=== PATIENT | female | born 1980 | race Hispanic/Latino ===

== ENCOUNTER 2018-03-21 14:35 | Emergency (ER) | payer SELFPAY ==
[2018-03-21] MEDS ORDERED: FLUCONAZOLE 100 MG TAB ONE (15:04)
== END 2018-03-21 15:16 | disposition home or self-care (01) ==
LOC: EDH 14:35
DX: B37.3 Candidiasis of vulva and vagina (principal); E11.9 Type 2 diabetes mellitus without complications; Z88.0 Allergy status to penicillin

== ENCOUNTER 2018-07-31 21:34 | Emergency (ER) | payer OTHER ==
[2018-07-31 22:17] LABS: BASOPHILS % (AUTO) 0.3 % (0.0-5.0); EOSINOPHILS % (AUTO) 1.1 % (0.0-8.0); HEMATOCRIT 36.8 % (36-48); LYMPHOCYTES % (AUTO) 20.2 % (21.0-51.0); MEAN CORPUSCULAR HEMOGLOBIN 28.4 pg (27.0-33.0); MEAN CORPUSCULAR HGB CONC 33.2 g/dL (32.0-36.0); MEAN CORPUSCULAR VOLUME 85.5 fL (79-99); MONOCYTES % (AUTO) 3.4 % (3.0-13.0); PLATELET COUNT (AUTO) 261 K/uL (130-400); RED CELL DISTRIBUTION WIDTH 13.9 % (11.0-15.5)
[2018-07-31 22:28] LABS: APPEARANCE,URINE Clear (CLEAR); BILIRUBIN,URINE Negative (NEGATIVE); COLOR,URINE Yellow (YELLOW); GLUCOSE, URINE (UA) TRACE mg/dL (NEGATIVE); KETONES,URINE Negative (NEGATIVE); LEUKOCYTE ESTERASE ,URINE Trace (NEGATIVE); NITRATE,URINE Negative (NEGATIVE); OCCULT BLOOD,URINE Negative (NEGATIVE); PH,URINE 5.5 (5.0-8.0); PROTEIN,URINE Negative (NEGATIVE)
[2018-07-31 22:34] LABS: CREATININE 0.6 mg/dL (0.5-1.5)
[2018-07-31 22:35] LABS: HCG,QUAL RESULT NEGATIVE (NEGATIVE)
[2018-07-31 22:37] LABS: BACTERIA,URINE None Seen /HPF (None Seen); RBC,URINE None Seen /HPF (0-1); SQUAMOUS EPITHELIAL CELL,UR Few /HPF (0-2); WBC,URINE 0-1 /HPF (0-1); YEAST,URINE BUDDING None Seen /HPF (None Seen)
[2018-07-31 22:45] LABS: ALBUMIN 3.3 g/dL (3.5-5.0); BILIRUBIN,TOTAL 0.3 mg/dL (0.2-1.0); TOTAL PROTEIN, SERUM 7.5 g/dL (6.0-8.3)
[2018-08-01] MEDS ORDERED: KETOROLAC TROMETHAMINE 60 MG/2 ML VIAL ONE (00:13)
[2018-08-01] MEDS ORDERED: DIAZEPAM 5 MG TABLET ONE (00:14)
== END 2018-08-01 04:35 | disposition home or self-care (01) ==
LOC: EDH 21:34
DX: K80.20 Calculus of gallbladder without cholecystitis without obstruction (principal); M54.5 Low back pain; E11.9 Type 2 diabetes mellitus without complications; Z88.0 Allergy status to penicillin
CPT/HCPCS: 36415; 76705; 80053; 81001; 81025; 83690; 85025; 96372; 99285; J1885

== ENCOUNTER 2023-12-29 17:48 | Emergency (ER) | payer OTHER ==
[~2023-12-29] VITALS: Ht 157.5 cm; Wt 96.6 kg
[2023-12-29 18:55] LABS: BASOPHILS # (AUTO) 0.07 K/uL (0.00-0.20); BASOPHILS % (AUTO) 0.5 % (0.0-5.0); EOSINOPHILS # (AUTO) 0.07 K/uL (0.00-0.70); EOSINOPHILS % (AUTO) 0.5 % (0.0-8.0); HEMATOCRIT 39.1 % (36-48); IMMATURE GRANULOCYTE ABSOLUTE 0.04 K/uL (0-1); LYMPHOCYTES % (AUTO) 15.8 % (21.0-51.0); MEAN CORPUSCULAR HGB CONC 34.8 g/dL (32.0-36.0); MEAN CORPUSCULAR VOLUME 86.1 fL (79-99); MONOCYTES # (AUTO) 0.4 K/uL (0.1-1.0); MONOCYTES % (AUTO) 3.3 % (3.0-13.0); NEUTROPHILS # (AUTO) 10.1 K/uL (1.8-7.7); NEUTROPHILS % (AUTO) 79.6 % (40.0-77.0); PLATELET COUNT (AUTO) 317 K/uL (130-400); RED BLOOD CELL COUNT(AUTO) 4.54 MIL/uL (4.00-5.50); WHITE BLOOD COUNT (AUTO) 12.8 K/uL (4.8-10.8)
[2023-12-29 19:04] LABS: CREATININE 0.6 mg/dL (0.5-1.5); POTASSIUM 3.7 mmol/L (3.5-5.1)
[2023-12-29 19:09] LABS: ALBUMIN 3.4 g/dL (3.5-5.0); BILIRUBIN,TOTAL 0.4 mg/dL (0.2-1.0)
[2023-12-29 20:22] LABS: APPEARANCE,URINE CLEAR (CLEAR); BILIRUBIN,URINE NEGATIVE (NEGATIVE); COLOR,URINE LIGHT-YELLOW (YELLOW); GLUCOSE, URINE (UA) >=1000 mg/dL (NEGATIVE); KETONES,URINE NEGATIVE (NEGATIVE); LEUKOCYTE ESTERASE ,URINE NEGATIVE Leu/uL (NEGATIVE); NITRATE,URINE NEGATIVE (NEGATIVE); OCCULT BLOOD,URINE NEGATIVE (NEGATIVE); PROTEIN,URINE NEGATIVE (NEGATIVE); UROBILINOGEN,URINE 0.2 mg/dL (0.2-1.0)
[2023-12-29 20:23] LABS: ADD UA MICROSCOPIC YES
[2023-12-29 20:25] LABS: HCG,QUALITATIVE URINE NEGATIVE (NEGATIVE)
[2023-12-29 20:29] LABS: BACTERIA,URINE RARE /HPF (None Seen); MUCUS,URINE RARE LPF (None Seen); SQUAMOUS EPITHELIAL CELL,UR FEW /HPF (0-2)
[2023-12-29] MEDS ORDERED: IOHEXOL-350 75 ML VIAL IV ONE (22:58)
[2023-12-29] MEDS: ONDANSETRON 4MG INJ IVP ONE (23:57)
[2023-12-29] MEDS: 0.9%NACL 1000ML 1,000 ML IV ONE (23:57)
[2023-12-29] MEDS: KETOROLAC 15MG/ML VIAL (15MG/ML) IV ONE (23:58)
[2023-12-29] MEDS: PANTOPRAZOLE 40 MG/VIAL IVP ONE (23:59)
[2023-12-30] MEDS: MORPHINE 2 MG SYG IVP ONE (00:01)
[2023-12-30] MEDS ORDERED: CYCL5TAB PO (00:22)
[2023-12-30] MEDS ORDERED: DICY20TA2 PO (00:22)
[2023-12-30] MEDS ORDERED: SULF1TAB42 PO (00:22)
[2023-12-30] MEDS ORDERED: ACET-66 PO (00:22)
[2023-12-30] MEDS ORDERED: LOPE2CAP PO (00:22)
[2023-12-30 01:12] VITALS: BP 132/67; PULSE 83; RESP 17; O2SAT 99
== END 2023-12-30 01:13 | disposition home or self-care (01) ==
LOC: EDH 17:48
DX: S76.011A Strain of muscle, fascia and tendon of right hip, initial encounter (principal); K52.9 Noninfective gastroenteritis and colitis, unspecified; N39.0 Urinary tract infection, site not specified; E11.9 Type 2 diabetes mellitus without complications; Z90.49 Acquired absence of other specified parts of digestive tract; Z88.0 Allergy status to penicillin; X58.XXXA Exposure to other specified factors, initial encounter; Y93.89 Activity, other specified; Y92.89 Other specified places as the place of occurrence of the external cause; Y99.8 Other external cause status
CPT/HCPCS: 99285; 74177; 96374; 96375 ×2; 96361; 80053; 83690; 85025; 81001; 81025; 36415; J2270; J7030; J2405; C9113; J1885; Q9967

== ENCOUNTER 2024-01-25 07:28 | Emergency (ER) | payer BC, OTHER ==
[~2024-01-25] VITALS: Ht 157.5 cm; Wt 97.5 kg
[~2024-01-25 07:28] MED LIST: ACET-66 PO; CYCL5TAB PO; DICY20TA2 PO; LOPE2CAP PO; SULF1TAB42 PO
[2024-01-25 08:18] LABS: RAPID GROUP A STREP negative (NEGATIVE)
[2024-01-25 08:25] LABS: SARS-CoV-2, RNA, NAAT NEGATIVE SARS CoV-2 (NEGATIVE)
[2024-01-25 08:28] LABS: INFLUENZA TYPE A Negative For Type A (NEGATIVE); INFLUENZA TYPE B Negative For Type B (NEGATIVE)
[2024-01-25 09:18] VITALS: BP 148/78; PULSE 86; RESP 16; O2SAT 99
== END 2024-01-25 09:28 | disposition home or self-care (01) ==
LOC: EDH 07:28
DX: J02.9 Acute pharyngitis, unspecified (principal); E11.9 Type 2 diabetes mellitus without complications; Z88.0 Allergy status to penicillin; Z90.49 Acquired absence of other specified parts of digestive tract; Z20.822 Contact with and (suspected) exposure to COVID-19
CPT/HCPCS: 82948; 87635; 87804; 87880

== ENCOUNTER 2024-06-29 15:14 | Emergency (ER) | payer BC ==
[~2024-06-29] VITALS: Ht 157.5 cm; Wt 93.4 kg
[2024-06-29] MEDS: KETOROLAC 15MG/ML VIAL (15MG/ML) IM ONE (16:22)
[2024-06-29] MEDS ORDERED: NAPR-1192 PO (17:10)
[2024-06-29] MEDS ORDERED: DICL100G32 TP (17:10)
[2024-06-29 17:25] VITALS: BP 146/71; PULSE 90; RESP 18; O2SAT 99
== END 2024-06-29 17:29 | disposition home or self-care (01) ==
LOC: EDH 15:14
DX: M77.12 Lateral epicondylitis, left elbow (principal); E11.9 Type 2 diabetes mellitus without complications; Z88.0 Allergy status to penicillin; Z79.899 Other long term (current) drug therapy; Z90.49 Acquired absence of other specified parts of digestive tract
CPT/HCPCS: 99284; 73080; 96372; J1885

== ENCOUNTER 2024-08-22 21:23 | Emergency (ER) | payer BC ==
[~2024-08-22] VITALS: Ht 157.5 cm; Wt 95.3 kg
[~2024-08-22 21:23] MED LIST changes: +DICL100G32 TP; +NAPR-1192 PO
[2024-08-22 21:48] VITALS: TEMP 99.6
[2024-08-22 21:51] LABS: BASOPHILS # (AUTO) 0.05 K/uL (0.00-0.20); BASOPHILS % (AUTO) 0.4 % (0.0-5.0); EOSINOPHILS # (AUTO) 0.09 K/uL (0.00-0.70); EOSINOPHILS % (AUTO) 0.8 % (0.0-8.0); HEMATOCRIT 38.7 % (36-48); IMMATURE GRANULOCYTE ABSOLUTE 0.04 K/uL (0-1); LYMPHOCYTES # (AUTO) 2.3 K/uL (1.0-4.8); LYMPHOCYTES % (AUTO) 19.4 % (21.0-51.0); MEAN CORPUSCULAR HEMOGLOBIN 29.4 pg (27.0-33.0); MEAN CORPUSCULAR HGB CONC 34.4 g/dL (32.0-36.0); MEAN CORPUSCULAR VOLUME 85.4 fL (79-99); MONOCYTES # (AUTO) 0.4 K/uL (0.1-1.0); NEUTROPHILS # (AUTO) 8.8 K/uL (1.8-7.7); NEUTROPHILS % (AUTO) 76.1 % (40.0-77.0); PLATELET COUNT (AUTO) 307 K/uL (130-400); RED BLOOD CELL COUNT(AUTO) 4.53 MIL/uL (4.00-5.50); RED CELL DISTRIBUTION WIDTH 12.7 % (11.0-15.5); WHITE BLOOD COUNT (AUTO) 11.6 K/uL (4.8-10.8)
[2024-08-22 21:56] LABS: SARS-CoV-2, RNA, NAAT NEGATIVE SARS CoV-2 (NEGATIVE)
[2024-08-22 22:00] LABS: INFLUENZA TYPE A Negative For Type A (NEGATIVE); INFLUENZA TYPE B Negative For Type B (NEGATIVE)
[2024-08-22 22:05] LABS: CREATININE 0.8 mg/dL (0.5-1.0)
[2024-08-22] MEDS: levoFLOXacin 750 MG TABLET PO ONE (22:55)
[2024-08-22] MEDS: 0.9%NACL 1000ML 1,000 ML IV ONE (22:55)
[2024-08-22] MEDS: INSULIN humuLIN R 100 UNIT/ML 3ML IV ONE (23:20)
[2024-08-23] LABS: ADD UA MICROSCOPIC YES; APPEARANCE,URINE CLEAR (CLEAR); BILIRUBIN,URINE NEGATIVE (NEGATIVE); COLOR,URINE COLORLESS (YELLOW); GLUCOSE, URINE (UA) >=1000 mg/dL (NEGATIVE); KETONES,URINE NEGATIVE (NEGATIVE); LEUKOCYTE ESTERASE ,URINE NEGATIVE Leu/uL (NEGATIVE); NITRATE,URINE NEGATIVE (NEGATIVE); OCCULT BLOOD,URINE NEGATIVE (NEGATIVE); PROTEIN,URINE NEGATIVE (NEGATIVE); UROBILINOGEN,URINE 0.2 mg/dL (0.2-1.0)
[2024-08-23 00:02] LABS: BACTERIA,URINE None Seen /HPF (None Seen); RBC,URINE 0-1 /HPF (0-1); SQUAMOUS EPITHELIAL CELL,UR Rare /HPF (0-2); WBC,URINE 0-1 /HPF (0-1)
[2024-08-23] MEDS ORDERED: LEVO750T68 PO (00:14)
[2024-08-23 00:24] VITALS: BP 153/75; PULSE 89; RESP 18; O2SAT 98
== END 2024-08-23 00:38 | disposition home or self-care (01) ==
LOC: EDH 21:23
DX: J18.9 Pneumonia, unspecified organism (principal); E11.65 Type 2 diabetes mellitus with hyperglycemia; E66.9 Obesity, unspecified; Z88.0 Allergy status to penicillin; Z90.49 Acquired absence of other specified parts of digestive tract; Z20.822 Contact with and (suspected) exposure to COVID-19
CPT/HCPCS: 99284; 96374; 71045; 87635; 84484; 80048; 85025; 87804 ×2; 82948; 81001; 36415; 93005; J1815; J7030

== ENCOUNTER 2025-03-29 12:09 | Emergency (ER) | payer BC ==
[~2025-03-29] VITALS: Ht 157.5 cm; Wt 92.5 kg
[~2025-03-29 12:09] MED LIST changes: -CYCL5TAB PO; +CYCL5TAB3 PO; +LEVO750T68 PO
--- NOTE | 2025-03-29 12:38 | ERN ---
General Chief Complaint: Chest Pain Stated Complaint: CHEST PAIN Time Seen by MD: 12:13 Source: patient History of Present Illness Initial Comments Patient is a 45-year-old obese female with a history of hypercholesterolemia and diabetes. She has had an appendectomy and a cholecystectomy. She started to have chest pain last night on her left chest making it difficulty for her to take a full breath and sleep. It did not improve today and so she comes in for further evaluation. She has not taken any Tylenol or Motrin to help with the pain. She has never had this pain before. She does not have any other associated symptoms such as an upper respiratory tract infection or GI symptoms. Patient states she has had no recent exertion. Allergies: Coded Allergies: Penicillins (Unverified Allergy, Unknown, HIVES, 12/29/23) Home Meds Active Scripts Levofloxacin (Levaquin 750Mg Tabs) 750 Mg Tablet, 750 MG PO DAILY for 6 Days, #6 TAB 0 Refills Prov:GENOVEVA COYNE 08/23/24 Diclofenac Sodium (Diclofenac Sodium) 3 % Gel..gram., 100 GM TP BID, #100 G Prov:KRISSY RENDON 06/29/24 Naproxen (Naproxen) 375 Mg Tablet, 375 MG PO BID for 10 Days, #20 TAB 0 Refills Prov:KRISSY RENDON 06/29/24 Loperamide HCl (Loperamide) 2 Mg Capsule, 2 MG PO TID PRN for DIARRHEA for 3 Days, #9 CAP Prov:UMESH JUNIOR 12/30/23 Sulfamethoxazole/Trimethoprim (Bactrim Ds Tablet) 800 Mg-160 Mg Tablet, 1 TAB PO BID for 10 Days, #20 TAB Prov:UMESH JUNIOR 12/30/23 Cyclobenzaprine HCl (Cyclobenzaprine HCl) 5 Mg Tablet, 5 MG PO DAILYDINNER for 5 Days, #5 TAB Prov:UMESH JUNIOR 12/30/23 Dicyclomine HCl (Bentyl) 20 Mg Tab, 20 MG PO BID for 5 Days, #10 TAB Prov:UMESH JUNIOR 12/30/23 Acetaminophen (Acetaminophen) 500 Mg Tablet, 500 MG PO Q4PRN for 5 Days, #15 TAB Prov:UMESH JUNIOR 12/30/23 Past Medical History Past Medical History: Diabetes-Type II, High Cholesterol Past Surgical History: Appendectomy, Cholecystectomy Family History Family History: Negative Social History Social History: Negative Constitutional: (-) chills, (-) diaphoresis, (-) fever, (-) malaise, (-) weakness, (-) other documentation EENTM: (-) eye pain, (-) blurred vision, (-) tearing, (-) double vision, (-) ear pain, (-) ear discharge, (-) nose pain, (-) nose congestion, (-) throat pain, (-) Throat swelling, (-) mouth pain, (-) tooth pain, (-) mouth swelling, (-) other documentation Respiratory: (-) cough, (-) orthopnea, (-) short of breath, (-) stridor, (-) wheezing, (-) other documentation Cardiovascular: (+) chest pain, (+) dyspnea on exertion Gastrointestinal/Abdominal: (-) nausea, (-) vomiting, (-) diarrhea, (-) abdominal pain, (-) abdominal distention, (-) constipation, (-) rectal bleeding, (-) dark stool/melena, (-) other documentation Genitourinary: (-) vaginal discharge, (-) vaginal bleeding, (-) dysuria, (-) frequency, (-) hematuria, (-) pain, (-) other documentation Skin: (-) laceration, (-) contusion, (-) abrasion, (-) abscess, (-) rash, (-) change in color, (-) change in hair, (-) change in nails, (-) diaphoresis, (-) dryness, (-) other documentation Physical Exam General Appearance: (+) mild distress Orientation: (+) alert, (+) oriented x 3 Head/Face Trauma: No Eye: bilateral eye normal inspection, bilateral eye PERRL, bilateral eye EOMI Ear, Nose, Throat: (+) hearing grossly normal Neck: (+) normal inspection, (+) supple, (+) full range of motion Respiratory: (+) lungs clear Respiratory Comment Patient has difficulty taking a full breath but her lung sounds are clear when she breathes in. She has pretty severe left upper chest wall tenderness. From ribs 3 through six medially and laterally. Heart: (+) regular, (+) no gallop Vascular: (+) no edema Gastrointestinal: (+) soft, (+) non-tender, (+) bowel sound present Results Laboratory and Microbiology Lab and Micro Result Laboratory Tests Test 03/29/25 12:50 03/29/25 13:18 White Blood Count 8.7 K/uL (4.8-10.8) Red Blood Count 4.34 MIL/uL (4.00-5.50) Hemoglobin 12.9 g/dL (12.0-16.0) Hematocrit 39.7 % (36-48) Mean Corpuscular Volume 91.5 fL (79-99) Mean Corpuscular Hemoglobin 29.7 pg (27.0-33.0) Mean Corpuscular Hemoglobin Concent 32.5 g/dL (32.0-36.0) Red Cell Distribution Width 13.2 % (11.0-15.5) Platelet Count 276 K/uL (130-400) Mean Platelet Volume 11.6 fL (7.5-10.5) H Immature Granulocyte % (Auto) 0.5 % (0-1) Neutrophils (%) (Auto) 78.9 % (40.0-77.0) H Lymphocytes (%) (Auto) 16.4 % (21.0-51.0) L Monocytes (%) (Auto) 3.0 % (3.0-13.0) Eosinophils (%) (Auto) 0.7 % (0.0-8.0) Basophils (%) (Auto) 0.5 % (0.0-5.0) Neutrophils # (Auto) 6.9 K/uL (1.8-7.7) Lymphocytes # (Auto) 1.4 K/uL (1.0-4.8) Monocytes # (Auto) 0.3 K/uL (0.1-1.0) Eosinophils # (Auto) 0.06 K/uL (0.00-0.70) Basophils # (Auto) 0.04 K/uL (0.00-0.20) Absolute Immature Granulocyte (auto 0.04 K/uL (0-1) Nucleated Red Blood Cells 0.0 % (0.0-0.19) Sodium Level 144 mmol/L (136-145) Potassium Level 4.2 mmol/L (3.5-5.1) Chloride Level 106 mmol/L (101-111) Carbon Dioxide Level 30 mmol/L (21-32) Blood Urea Nitrogen 8 mg/dL (7-18) Creatinine 0.5 mg/dL (0.5-1.0) Glomerular Filtration Rate Calc 119 mL/min (>90) Random Glucose 94 mg/dL (70-105) Total Calcium 9.1 mg/dL (8.5-10.1) Troponin I High Sensitivity < 4 ng/L (4-50) L Procalcitonin < 0.05 ng/mL (0.05-0.5) L Urine Color LIGHT-YELLOW (YELLOW) Urine Appearance CLEAR (CLEAR) Urine pH 5.5 (5.0-8.0) Urine Specific Wilkinson 1.026 (1.001-1.031) Urine Protein NEGATIVE mg/dL (NEGATIVE) Urine Glucose (UA) >=1000 mg/dL (NEGATIVE) H Urine Ketones NEGATIVE mg/dL (NEGATIVE) Urine Occult Blood NEGATIVE (NEGATIVE) Urine Nitrate NEGATIVE (NEGATIVE) Urine Bilirubin NEGATIVE mg/dL (NEGATIVE) Urine Urobilinogen 0.2 mg/dL (0.2-1.0) Urine Leukocyte Esterase NEGATIVE Hollie/uL Urine RBC 0-1 /HPF (0-1) Urine WBC 0-1 /HPF (0-1) Urine Squamous Epithelial Cells RARE /HPF (0-2) Urine Bacteria RARE /HPF (None Seen) MDM 45-year-old female with chest wall tenderness. An EKG already performed shows no ischemic changes no ST-elevation no T-wave changes just low voltage in the extremity in precordial leads. The chest wall tenderness is surprisingly severe. I will give her some Toradol and Flexeril. I will also give her some fluids. A quick troponin chemistry panel CBC. Laboratory results are negative for infection and cardiac ischemia. The patient feels much better after receiving a L of fluid and a dose of muscle relaxant and Toradol. Patient now wonders if she injured her chest wall moving some heavy boxes yesterday. ED Course Orders Procedure Category Date Status Time Chest 1vw RAD 03/29/25 Resulted 12:17 12 Lead Ekg Tracing- EKG 03/29/25 Complete Technical 12:17 Iv Insertion CPOE 03/29/25 Transmitted 12:17 Cbc With Differential LAB 03/29/25 Complete 12:17 Troponin I High LAB 03/29/25 Complete Sensitivity 12:17 Urinalysis Profile LAB 03/29/25 Complete 12:17 Basic Metabolic Panel LAB 03/29/25 Complete 12:17 Lactated Ringers PHA 03/29/25 Complete 1000ml (Lactated 12:38 Cyclobenzaprine Hcl PHA 03/29/25 Complete (Cyclobenzaprine Hcl 13:00 Ketorolac PHA 03/29/25 Complete Tromethamine 30mg/Ml 13:00 Procalcitonin LAB 03/29/25 Complete 13:40 Current Medications Medications (Trade) Dose Ordered Sig/Mamta Route PRN Reason Start Time Stop Time Status Last Admin Dose Admin Cyclobenzaprine HCl (Cyclobenzaprine HCl) 10 mg ONCE ONCE PO 03/29/25 13:00 03/29/25 13:01 DC 03/29/25 13:03 Ketorolac Tromethamine (toRADol) 30 mg ONCE ONCE IVP 03/29/25 13:00 03/29/25 13:01 DC 03/29/25 13:03 Lactated Ringer's (Lactated Ringers 1000ml) 1,000 ml BOLUS STAT IV 03/29/25 12:38 03/29/25 12:40 DC 03/29/25 13:03 Vital Signs Date Time Temp Pulse Resp B/P (MAP) Pulse Ox O2 Delivery O2 Flow Rate FiO2 03/29/25 13:09 98.2 70 16 121/65 98 Room Air* 0 21 03/29/25 12:12 73 18 118/76 100 Room Air 0 DX & DISP Disposition: Discharge Departure Impression: Primary Impression: Chest wall pain Condition: Stable Additional Instructions: Your cardiac workup is negative for cardiac ischemia and you have no signs of a bacterial infection. Treat your chest wall tenderness with ibuprofen and warm compresses. I also encourage moving the muscles doing arm exercises to help speed the recovery. Follow-up with your primary care physician of the pain persists. Referrals: SELF,REFERRAL (PCP) JCARLOS KEENE MD March 29, 2025 12:38
[2025-03-29] MEDS: LACTATED RINGERS 1000ML IV STA (13:03)
[2025-03-29] MEDS: CYCLOBENZAPRINE HCL 10 MG TABLET PO ONE (13:03)
[2025-03-29] MEDS: ketOROlac 30MG VIAL (30MG/ML) IVP ONE (13:03)
[2025-03-29 13:14] LABS: BASOPHILS # (AUTO) 0.04 K/uL (0.00-0.20); BASOPHILS % (AUTO) 0.5 % (0.0-5.0); EOSINOPHILS # (AUTO) 0.06 K/uL (0.00-0.70); EOSINOPHILS % (AUTO) 0.7 % (0.0-8.0); HEMATOCRIT 39.7 % (36-48); IMMATURE GRANULOCYTE ABSOLUTE 0.04 K/uL (0-1); LYMPHOCYTES # (AUTO) 1.4 K/uL (1.0-4.8); LYMPHOCYTES % (AUTO) 16.4 % (21.0-51.0); MEAN CORPUSCULAR HEMOGLOBIN 29.7 pg (27.0-33.0); MEAN CORPUSCULAR HGB CONC 32.5 g/dL (32.0-36.0); MEAN CORPUSCULAR VOLUME 91.5 fL (79-99); MONOCYTES # (AUTO) 0.3 K/uL (0.1-1.0); NEUTROPHILS # (AUTO) 6.9 K/uL (1.8-7.7); NEUTROPHILS % (AUTO) 78.9 % (40.0-77.0); PLATELET COUNT (AUTO) 276 K/uL (130-400); RED BLOOD CELL COUNT(AUTO) 4.34 MIL/uL (4.00-5.50); RED CELL DISTRIBUTION WIDTH 13.2 % (11.0-15.5); WHITE BLOOD COUNT (AUTO) 8.7 K/uL (4.8-10.8)
[2025-03-29 13:22] LABS: CREATININE 0.5 mg/dL (0.5-1.0); POTASSIUM 4.2 mmol/L (3.5-5.1)
[2025-03-29 13:59] LABS: APPEARANCE,URINE CLEAR (CLEAR); BILIRUBIN,URINE NEGATIVE (NEGATIVE); COLOR,URINE LIGHT-YELLOW (YELLOW); GLUCOSE, URINE (UA) >=1000 mg/dL (NEGATIVE); KETONES,URINE NEGATIVE (NEGATIVE); LEUKOCYTE ESTERASE ,URINE NEGATIVE Leu/uL (NEGATIVE); NITRATE,URINE NEGATIVE (NEGATIVE); OCCULT BLOOD,URINE NEGATIVE (NEGATIVE); PH,URINE 5.5 (5.0-8.0); PROTEIN,URINE NEGATIVE (NEGATIVE); UROBILINOGEN,URINE 0.2 mg/dL (0.2-1.0)
[2025-03-29 14:03] LABS: ADD UA MICROSCOPIC YES
[2025-03-29 14:05] LABS: BACTERIA,URINE RARE /HPF (None Seen); MUCUS,URINE RARE LPF (None Seen); RBC,URINE 0-1 /HPF (0-1); SQUAMOUS EPITHELIAL CELL,UR RARE /HPF (0-2); WBC,URINE 0-1 /HPF (0-1)
--- NOTE | 2025-03-29 14:25 | HMCIMG ---
PORTABLE CHEST RADIOGRAPH INDICATION: CHEST PAIN COMPARISON: 08/22/2024 FINDINGS: quality assurance monitor chassis leads overlie the field of view. Shallow inspiration. Heart size is normal. The pulmonary vascularity and rafat appear normal. No abnormal pulmonary parenchymal opacity or consolidation identified. No significant pleural effusion noted. No pneumothorax detected. IMPRESSION: Shallow inspiration without radiographic evidence for any acute cardiopulmonary process.
--- NOTE | 2025-03-29 14:27 | EKG ---
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
[2025-03-29 15:00] VITALS: BP 125/101; PULSE 68; RESP 16; TEMP 98.3; O2SAT 98
== END 2025-03-29 15:07 | disposition home or self-care (01) ==
LOC: EDH 12:09
DX: R07.89 Other chest pain (principal); E11.9 Type 2 diabetes mellitus without complications; E66.9 Obesity, unspecified; E78.00 Pure hypercholesterolemia, unspecified; Z88.0 Allergy status to penicillin; Z90.49 Acquired absence of other specified parts of digestive tract
CPT/HCPCS: 99284; 96374; 71045; 96361; 84484; 80048; 85025; 81001; 36415; 93005; 84145; J1885; J7120

== ENCOUNTER 2025-07-14 20:02 | Emergency (ER) | payer BC ==
[~2025-07-14] VITALS: Ht 157.5 cm; Wt 91.2 kg
[2025-07-14 20:05] VITALS: TEMP 98.4
--- NOTE | 2025-07-14 20:19 | ERN ---
General Chief Complaint: Shoulder Injury/Pain Stated Complaint: C/O RT SHOULDER PAIN RADIATING TO BACK AND CHEST Time Seen by MD: 20:04 Source: patient History of Present Illness Initial Comments PATIENT IS A 45-YEAR-OLD FEMALE COMING IN COMPLAINING OF RIGHT SHOULDER PAIN. PATIENT STATES THAT THE PAIN HAS BEEN WEAK. PATIENT ALSO ATTRIBUTES THE PAIN TO LIFTING HEAVY OBJECTS AND DOING SOME PHYSICAL THEY BROUGHT HIM. SHE STATES THAT SHE IS ABLE TO MOVE HER SHOULDER BUT SOME DISCOMFORT WHEN SHE STARTED ABDUCT. Allergies: Coded Allergies: Penicillins (Unverified Allergy, Unknown, HIVES, 12/29/23) Home Meds Active Scripts Levofloxacin (Levaquin 750Mg Tabs) 750 Mg Tablet, 750 MG PO DAILY for 6 Days, #6 TAB 0 Refills Prov:GENOVEVA COYNE 08/23/24 Diclofenac Sodium (Diclofenac Sodium) 3 % Gel..gram., 100 GM TP BID, #100 G Prov:KRISSY RENDON 06/29/24 Naproxen (Naproxen) 375 Mg Tablet, 375 MG PO BID for 10 Days, #20 TAB 0 Refills Prov:KRISSY RENDON 06/29/24 Loperamide HCl (Loperamide) 2 Mg Capsule, 2 MG PO TID PRN for DIARRHEA for 3 Days, #9 CAP Prov:UMESH JUNIOR 12/30/23 Sulfamethoxazole/Trimethoprim (Bactrim Ds Tablet) 800 Mg-160 Mg Tablet, 1 TAB PO BID for 10 Days, #20 TAB Prov:UMESH JUNIOR 12/30/23 Cyclobenzaprine HCl (Cyclobenzaprine HCl) 5 Mg Tablet, 5 MG PO DAILYDINNER for 5 Days, #5 TAB Prov:UMESH JUNIOR 12/30/23 Dicyclomine HCl (Bentyl) 20 Mg Tab, 20 MG PO BID for 5 Days, #10 TAB Prov:UMESH JUNIOR 12/30/23 Acetaminophen (Acetaminophen) 500 Mg Tablet, 500 MG PO Q4PRN for 5 Days, #15 TAB Prov:UMESH JUNIOR 12/30/23 Past Medical History Past Medical History: Diabetes-Type II Past Surgical History: Appendectomy, Cholecystectomy Family History Family History: Negative Social History Social History: Negative Female( History) LMP: Jun 19, 2025 ROS Dictation CONSTITUTIONAL: NO CHILLS, NO FEVER, NO WEAKNESS, NO DIAPHORESIS, NO MALAISE. HEAD/FACE: NO SIGNS OF TRAUMA. EENT: NO EYE PAIN, NO BLURRED VISION, NO TEARING, NO DOUBLE VISION, NO EAR PAIN, NO EAR DISCHARGE, NO NOSE PAIN, NO NASAL CONGESTION, NO THROAT PAIN, NO THROAT SWELLING, NO MOUTH PAIN. RESPIRATORY: NO COUGH, NO ORTHOPNEA, NO SOB, NO STRIDOR, NO WHEEZING. CARDIOVASCULAR: NO CHEST PAIN, NO EDEMA, NO PALPITATIONS, NO SYNCOPE. GASTROINTESTINAL/ABDOMINAL: NO ABDOMINAL PAIN, NO CONSTIPATION, NO DIARRHEA, NO NAUSEA, NO VOMITING. GENITOURINARY: NO ABNORMAL DISCHARGE, NO DYSURIA, NO FREQUENT URINATION, NO HEMATURIA. NO COMPLAINTS OF PAIN IN THE GENITALS. MUSCULOSKELETAL: NO BACK PAIN, NO GOUT, JOINT PAIN, NO JOINT SWELLING, MUSCLE PAIN, NO MUSCLE STIFFNESS, NO NECK PAIN. INTEGUMENTARY: NO CHANGE IN COLOR, NO CHANGE IN HAIR/NAILS, NO DRYNESS, NO LESION, NO LUMPS, NO RASH. NEUROLOGICAL/PSYCH: NO ANXIETY, NOT DEPRESSED, NO EMOTIONAL PROBLEM, NO HEADACHE, NO NUMBNESS, NO PRE-EXISTING DEFICIT, NO HISTORY OF SEIZURES, NO TREMORS, NO WEAKNESS. HEMATOLOGIC/LYMPHATIC: NOT ANEMIC, NO HISTORY OF BLOOD CLOTS, NO APPARENT BLEEDING, NO BRUISING, GLANDS NOT SWOLLEN. ALL SYSTEMS NEGATIVE, EXCEPT NOTED. Physical Exam Physical Exam Dictation VITAL SIGNS: REVIEWED. GENERAL APPEARANCE: ALERT, ORIENTED X3, NO ACUTE DISTRESS, OBESE. HEAD AND FACE: NON-TRAUMATIC. EYES: PERRL, PINK CONJUNCTIVAS, EYELID NO TRAUMA, ANTERIOR CHAMBER CLEAR. EARS: PINNAS INTACT AND NO SIGNS OF TRAUMA OR ERYTHEMA. EAR CANALS CLEAR AND NO DISCHARGE. TMS NO ERYTHEMA. NOSE: NO DISCHARGE, NO BLEEDING. OROPHARYNX: MOUTH NORMAL, TEETH NO CARIES, TONGUE PINK. PHARYNX CLEAR, NO ERYTHEMA. TONSILS NO EXUDATES, NO ABSCESSES NOTED. MUCOUS MEMBRANE MOIST. NECK: SUPPLE, NON-TENDER, NO THYROMEGALY, NO MASSES, NO JVD, NO BRUITS. BREAST: DEFERRED. CHEST: NO TENDERNESS, NO CREPITUS, NO PARADOXICAL MOVEMENT, NO RETRACTIONS. LUNGS: CLEAR, WELL-VENTILATED, SYMMETRIC, NO RALES, NO WHEEZING, NO RHONCHI, NO STRIDOR, GOOD BREATH SOUNDS BILATERALLY. HEART: REGULAR RATE, REGULAR RHYTHM, NO MURMUR, NO GALLOPS. VASCULAR: NO PERIPHERAL EDEMA. ABDOMEN: SOFT, POSITIVE BOWEL SOUNDS, NONDISTENDED, NO GUARDING, NONTENDER, NO REBOUND, NO MASSES NO HEPATOMEGALY, NO SPLENOMEGALY, NO HAINES'S SIGN, NO HERNIAS. RECTAL: DEFERRED. GENITAL: DEFERRED. NEUROLOGICAL: NORMAL SPEECH, GROSS MOTOR FUNCTION INTACT, GROSS SENSORY FUNCTION INTACT. MUSCULOSKELETAL: NECK NONTENDER, FULL RANGE OF MOTION, BACK NONTENDER, FULL RANGE OF MOTION. EXTREMITIES: NONTENDER, FULL RANGE OF MOTION. PATIENT WITH THE PAIN ON PALPATION NO LIMITATION ON ABDUCTION ADDUCTION SKIN: COLOR PINK, DRY, NO TURGOR, NO RASH, NO LACERATIONS, NO ABRASIONS, NO CONTUSIONS. LYMPHATICS: DEFERRED. Results Laboratory and Microbiology Lab and Micro Result Laboratory Tests Test 07/14/25 20:14 07/14/25 20:27 Urine HCG, Qualitative NEGATIVE (NEGATIVE) White Blood Count 13.4 K/uL (4.8-10.8) H Red Blood Count 4.39 MIL/uL (4.00-5.50) Hemoglobin 13.3 g/dL (12.0-16.0) Hematocrit 39.0 % (36-48) Mean Corpuscular Volume 88.8 fL (79-99) Mean Corpuscular Hemoglobin 30.3 pg (27.0-33.0) Mean Corpuscular Hemoglobin Concent 34.1 g/dL (32.0-36.0) Red Cell Distribution Width 13.2 % (11.0-15.5) Platelet Count 290 K/uL (130-400) Mean Platelet Volume 11.5 fL (7.5-10.5) H Immature Granulocyte % (Auto) 0.4 % (0-1) Neutrophils (%) (Auto) 80.9 % (40.0-77.0) H Lymphocytes (%) (Auto) 15.2 % (21.0-51.0) L Monocytes (%) (Auto) 2.8 % (3.0-13.0) L Eosinophils (%) (Auto) 0.4 % (0.0-8.0) Basophils (%) (Auto) 0.3 % (0.0-5.0) Neutrophils # (Auto) 10.8 K/uL (1.8-7.7) H Lymphocytes # (Auto) 2.0 K/uL (1.0-4.8) Monocytes # (Auto) 0.4 K/uL (0.1-1.0) Eosinophils # (Auto) 0.06 K/uL (0.00-0.70) Basophils # (Auto) 0.04 K/uL (0.00-0.20) Absolute Immature Granulocyte (auto 0.05 K/uL (0-1) Nucleated Red Blood Cells 0.0 % (0.0-0.19) Sodium Level 139 mmol/L (136-145) Potassium Level 4.1 mmol/L (3.5-5.1) Chloride Level 104 mmol/L (101-111) Carbon Dioxide Level 29 mmol/L (21-32) Blood Urea Nitrogen 19 mg/dL (7-18) H Creatinine 0.6 mg/dL (0.5-1.0) Glomerular Filtration Rate Calc 114 mL/min (>90) Random Glucose 167 mg/dL (70-105) H Total Calcium 9.2 mg/dL (8.5-10.1) Troponin I High Sensitivity < 4 ng/L (4-50) L Labs Reviewed?: Yes EKG/XRAY/US/CT/MRI EKG Comment 07/14/2025 TIME 8:17 P.M. VENTRICULAR RATE 84 SINUS RHYTHM NM [address] WAVE ELEVATION OR DEPRESSION X-RAY Comment chest xray- nad MDM MDM: DIFFERENTIAL DIAGNOSIS: DELTOID STRAIN, MUSCLE STRAIN, ACS, NSTEMI, leucocytosis RATIONALE: TESTS CONSIDERED AND ORDERED SECONDARY TO SHARED DECISION MAKING INCLUDE: PREVIOUS OUTSIDE RECORDS REVIEWED: OLD ER VISITS. RISK OF COMPLICATION AND/OR MORBIDITY OR MORTALITY OF PATIENT MANAGEMENT: NONE MEDICATIONS-PER MEDICATION RECONCILIATION NEED FOR HOSPITALIZATION: PATIENT DOES NOT MEET CRITERIA FOR HOSPITALIZATION. NEED FOR EMERGENCY MAJOR/MINOR SURGERY: NO A sling was placed in the right shoulder patient due to right deltoid tenderness and pain on he has been. Laboratory workup doses otherwise limits. Patient received anti-inflammatories antispasmodics he will be discharged in stable condition with a diagnosis of deltoid strain. I did also advised her appropriate follow up with the PCP long-term management. ED Course Orders Procedure Category Date Status Time Cbc With Differential LAB 07/14/25 Complete 20:09 12 Lead Ekg Tracing- EKG 07/14/25 Complete Technical 20:09 Troponin I High LAB 07/14/25 Complete Sensitivity 20:09 Basic Metabolic Panel LAB 07/14/25 Complete 20:09 ,Urine Test LAB 07/14/25 Complete 20:09 Orphenadrine Citrate PHA 07/14/25 Complete (Norflex) 20:30 Sling YASSINE 07/14/25 In Process 20:19 Ketorolac PHA 07/14/25 Complete Tromethamine 30mg/Ml 21:00 Chest 1vw RAD 07/14/25 Taken 21:08 Current Medications Medications (Trade) Dose Ordered Sig/Mamta Route PRN Reason Start Time Stop Time Status Last Admin Dose Admin Ketorolac Tromethamine (toRADol) 30 mg ONCE ONCE IM 07/14/25 21:00 07/14/25 21:01 DC 07/14/25 21:14 Orphenadrine Citrate (Norflex) 60 mg ONCE ONCE IM 07/14/25 20:30 07/14/25 20:31 DC 07/14/25 20:28 Vital Signs Date Time Temp Pulse Resp B/P (MAP) Pulse Ox O2 Delivery O2 Flow Rate FiO2 07/14/25 21:19 76 16 134/74 98 Room Air* 0 21 07/14/25 20:05 98.4 88 20 131/71 99 Room Air* 0 21 07/14/25 20:05 98.4 88 20 131/71 99 Room Air DX & DISP Disposition: Discharge Departure Impression: Primary Impression: Strain of deltoid muscle Additional Impression: Leucocytosis Condition: Stable Scripts Naproxen (Naproxen) 500 Mg Tablet 1 TAB PO BID for pain for 7 Days, #14 TAB 0 Refills Prov: SANDRA SÁNCHEZ MD 07/14/25 Methocarbamol (Robaxin) 750 Mg Tab 1 TAB PO BID for 7 Days, #14 TAB 0 Refills Prov: SANDRA SÁNCHEZ MD 07/14/25 Additional Instructions: You have been reviewed in the emergency department at [facility] after presenting with chest pain. After considering your history, your risk factors, your EKG and your blood test troponins, have been found to be at very low risk less than (1 in 100) of having a major adverse cardiac event (like he art attack) in the near future. In the " low risk" group, the risks of doing further tests and treatment as the inpatient outweighs the benefits. In many patients in the low risk group for the test of any sort or unnecessary, however he should discuss this further with his general practitioner who will understand the medical and personal backgrounds better. Because we have never declared you" no risk" we would suggest. 1 returning for medical review if you have further episodes of chest pain/arm pain or other concerning symptoms like dizziness, collapse, palpitations or shortness of breath. 2. Following up with your local doctor who will consider the need for further testing and will also ensure that any modifiable risk factors you may have for heart disease are optimally managed. Patient will be discharged in stable condition at the moment discharge patient states , no chest pain Referrals: AARON ROBERSON (PCP) Time of Disposition: 21:54 SANDRA SÁNCHEZ MD Jul 14, 2025 20:19
--- NOTE | 2025-07-14 20:24 | EKG ---
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
[2025-07-14] MEDS: ORPHENADRINE 60MG/2ML IM ONE (20:28)
[2025-07-14 20:35] LABS: IMMATURE GRANULOCYTE ABSOLUTE 0.05 K/uL (0-1); NUCLEATED RED BLOOD CELLS 0.0 % (0.0-0.19); PLATELET COUNT (AUTO) 290 K/uL (130-400); RED BLOOD CELL COUNT(AUTO) 4.39 MIL/uL (4.00-5.50); RED CELL DISTRIBUTION WIDTH 13.2 % (11.0-15.5); WHITE BLOOD COUNT (AUTO) 13.4 K/uL (4.8-10.8)
--- NOTE | 2025-07-14 20:37 | NUR ---
PT PLACED IN RT ARM SLING IN TRIAGE.
[2025-07-14 20:44] LABS: CREATININE 0.6 mg/dL (0.5-1.0); GLOMERULAR FILTR. RATE CALC 114.0 mL/min (>90); GLUCOSE,RANDOM 167.0 mg/dL (70-105); SODIUM SERUM 139.0 mmol/L (136-145); UREA NITROGEN, BLOOD 19.0 mg/dL (7-18)
[2025-07-14 21:19] VITALS: BP 134/74; PULSE 76; RESP 16; O2SAT 98
[2025-07-14] MEDS ORDERED: METH-662 PO (21:55)
[2025-07-14] MEDS ORDERED: NAPR-1194 PO (21:55)
--- NOTE | 2025-07-14 22:51 | HMCIMG ---
EXAM: CR Chest, 1 view CLINICAL HISTORY: Chest pain. COMPARISON: Chest radiograph dated 03/29/2025. FINDINGS: The lungs show no infiltrates or other acute findings. No pleural effusion or pneumothorax. The cardiomediastinal silhouette is within normal limits. No acute osseous abnormality. IMPRESSION: No acute cardiopulmonary process is evident. Compared to the prior study, there is no significant interval change. /[place]
== END 2025-07-14 22:14 | disposition home or self-care (01) ==
LOC: EDH 20:02
DX: S46.911A Strain of unspecified muscle, fascia and tendon at shoulder and upper arm level, right arm, initial encounter (principal); E11.9 Type 2 diabetes mellitus without complications; Z88.0 Allergy status to penicillin; Z90.49 Acquired absence of other specified parts of digestive tract; X50.0XXA Overexertion from strenuous movement or load, initial encounter; Y93.89 Activity, other specified; Y92.89 Other specified places as the place of occurrence of the external cause; Y99.8 Other external cause status
CPT/HCPCS: 99284; 71045; 84484; 80048; 85025; 81025; 36415; 96372 ×2; 93005; J1885; J2360

== ENCOUNTER 2025-10-12 19:06 | Emergency (ER) | payer BC ==
[~2025-10-12] VITALS: Ht 157.5 cm; Wt 93.4 kg
[~2025-10-12 19:06] MED LIST changes: -DICL100G32 TP; +DICL100G46 TP; +METH-662 PO; +NAPR-1194 PO
[2025-10-12 19:30] VITALS: BP 144/72; PULSE 78; RESP 18; TEMP 98.4; O2SAT 98
--- NOTE | 2025-10-12 20:07 | NUR ---
PATIENT REFUSING RPEGNANCY TEST; ED PROVIDER MADE AWARE; RADIOLOGY MADE AWARE; DISCLOSURE SIGNED AND RISKS AND CONCEQUENCES EXPLAINED TO PATIENT
[2025-10-12] MEDS: HYDROcodone/APAP 5/325 1 TAB TABLET PO ONE (20:23)
--- NOTE | 2025-10-12 20:34 | HMCIMG ---
EXAM: CR right Knee, 3 View. CLINICAL HISTORY: pain COMPARISON: None provided. FINDINGS: BONES: No acute fracture or aggressive appearing osseous lesion. JOINTS: The joint spaces show no significant degenerative disease. There is no joint effusion appreciated. SOFT TISSUES: The soft tissues are unremarkable. IMPRESSION: No acute osseous pathology evident. /[place]
--- NOTE | 2025-10-12 20:58 | ERN ---
ED Note History of Present Illness Stated Complaint: FALL Chief Complaint: Knee Injury/Swelling Time Seen by MD: 19:14 Time Seen by Midlevel: 19:14 Dictation: The patient is a 45-year-old female with a history of diabetes who presents to the emergency department with complaints of right knee pain after a slip and fall. Patient reports she landed on her right knee. Patient otherwise denies any head trauma, neck pain, back pain. Denies any other injury from the fall. Fall happened prior to arrival. Allergies: Coded Allergies: Penicillins (Unverified Allergy, Unknown, HIVES, 12/29/23) Home Meds Active Scripts Naproxen (Naproxen) 500 Mg Tablet, 1 TAB PO BID for pain for 7 Days, #14 TAB 0 Refills Prov:SANDRA SÁNCHEZ MD 07/14/25 Methocarbamol (Robaxin) 750 Mg Tab, 1 TAB PO BID for 7 Days, #14 TAB 0 Refills Prov:SANDRA SÁNCHEZ MD 07/14/25 Levofloxacin (Levaquin 750Mg Tabs) 750 Mg Tablet, 750 MG PO DAILY for 6 Days, #6 TAB 0 Refills Prov:GENOVEVA COYNE PAC 08/23/24 Diclofenac Sodium (Diclofenac Sodium) 3 % Gel..gram., 100 GM TP BID, #100 G Prov:KRISSY RENDON I PAC 06/29/24 Naproxen (Naproxen) 375 Mg Tablet, 375 MG PO BID for 10 Days, #20 TAB 0 Refills Prov:KRISSY RENDON I PAC 06/29/24 Loperamide HCl (Loperamide) 2 Mg Capsule, 2 MG PO TID PRN for DIARRHEA for 3 Days, #9 CAP Prov:UMESH JUNIOR 12/30/23 Sulfamethoxazole/Trimethoprim (Bactrim Ds Tablet) 800 Mg-160 Mg Tablet, 1 TAB PO BID for 10 Days, #20 TAB Prov:UMESH JUNIOR 12/30/23 Cyclobenzaprine HCl (Cyclobenzaprine HCl) 5 Mg Tablet, 5 MG PO DAILYDINNER for 5 Days, #5 TAB Prov:UMESH JUNIOR 12/30/23 Dicyclomine HCl (Bentyl) 20 Mg Tab, 20 MG PO BID for 5 Days, #10 TAB Prov:UMESH JUNIOR Betito SONALI 12/30/23 Acetaminophen (Acetaminophen) 500 Mg Tablet, 500 MG PO Q4PRN for 5 Days, #15 TAB Prov:UMESH JUNIOR SONALI 12/30/23 Past Medical History Past Medical History: Diabetes-Type II Surgical History: Appendectomy, Cholecystectomy Family History: Negative Social History: Negative RN Note Reviewed/Agreed w/PFSH: Yes Review of System Dictation Constitutional: Negative for fever,chills, and weight loss Eyes: Negative for injury, pain,redness, and discharge ENT: Negative for injury,pain or swelling Cardiovascular: Negative for chest pain, palpitations, and edema Respiratory: Negative for shortness of breath, cough, and wheezing, Abdomen/GI: Negative for abdominal pain, nausea, vomiting, diarrhea, and constipation Back: Negative for injury and pain : Negative for injury, bleeding and discharge MS/Extremity: Positive for right knee pain, injury Skin: Negative for rash, and discoloration Neuro: Negative for headache, weakness, numbness, tingling, and seizure Psych: Negative for suicide ideation, homicidal ideation, and hallucinations Initial Vital Sign VS Vital Signs Date Time Temp Pulse Resp B/P (MAP) Pulse Ox O2 Delivery O2 Flow Rate FiO2 10/12/25 19:11 98.1 78 20 144/72 100 Room Air 10/12/25 19:30 0 21 Physical Exam Dictation Vital Signs reviewed General Appearance: Alert, oriented x 3, no acute distress, well developed, nourished. Head and Face: non-traumatic. Eyes: PERRL, pink conjunctivas, eyelid no trauma, anterior chamber with arcus senilis. Ears: Pinnas intact and no signs of trauma or erythema ear canals clear and no discharge TM no erythema Nose: No discharge, no bleeding. Oropharynx: Mouth normal, tongue pink. pharynx clear,no erythema, tonsils no exudates, no abscesses noted, mucous membrane moist Neck: Supple, non-tender, no thyromegaly, no masses, no JVD, no bruits Breast:Deferred Chest:No tenderness, no crepitus, no paradoxical movement, no retractions Lungs:Clear, well-ventilated, symmetric, no rales, no wheezing, no rhonchi, no stridor, good breath sounds bilaterally Heart: Regular rate, regular rhythm, no murmur, no gallops Vascular: no peripheral edema, dorsalis pedis 3+ bilaterally Abdomen: Soft, positive bowel sounds, nondistended, no guarding, nontender, no rebound, no masses no hepatomegaly, no splenomegaly, no Franco's sign, no hernias. Rectal: Deferred Genital: Deferred Neurological: Normal speech, motor function intact, sensory function intact Musculoskeletal: Neck nontender, full range of motion, back nontender, full range of motion, Extremities: nontender, full range of motion , tenderness to right knee upon palpation, there is a small abrasion with no active bleeding, no bruising or discoloration, Skin: Color pink, dry, no turgor, no rash, no lacerations,no contusions. Lymphatic: Deferred Results (Laboratory/Radiology) Laboratory/Radiology REASON: pain ORDERING PHYSICIAN: CARINA CHOPRA WINDOW SHADE ESTIMATOR PROCEDURE: KNEE 3V RT - KNEE 3VWS RT EXAM: CR right Knee, 3 View. CLINICAL HISTORY: pain COMPARISON: None provided. FINDINGS: BONES: No acute fracture or aggressive appearing osseous lesion. JOINTS: The joint spaces show no significant degenerative disease. There is no joint effusion appreciated. SOFT TISSUES: The soft tissues are unremarkable. IMPRESSION: No acute osseous pathology evident. /[place] Labs Reviewed?: Yes ED Course ED Course Orders Procedure Category Date Status Time Knee 3vws Rt RAD 10/12/25 Resulted 19:29 Hydrocodone/Apap PHA 10/12/25 Complete 5/325 ([place] 5/325mg) 19:30 Current Medications Medications (Trade) Dose Ordered Sig/[place] Route PRN Reason Start Time Stop Time Status Last Admin Dose Admin Acetaminophen/ Hydrocodone Bitart (NORco 5/325MG) 1 tab ONCE ONCE PO 10/12/25 19:30 10/12/25 19:31 DC 10/12/25 20:23 Vital Signs Date Time Temp Pulse Resp B/P (MAP) Pulse Ox O2 Delivery O2 Flow Rate FiO2 10/12/25 19:30 98.4 78 18 144/72 98 Room Air* 0 21 10/12/25 19:11 98.1 78 20 144/72 100 Room Air Medical Decision Making MDM The patient is a 45-year-old female with a history of diabetes who presents to the emergency department with complaints of right knee pain after a slip and fall. Patient reports she landed on her right knee. Patient otherwise denies any head trauma, neck pain, back pain. Denies any other injury from the fall. Fall happened prior to arrival. No fractures or dislocations seen on x-ray. Patient will be put on a knee immobilizer and instructed to follow up with ortho. On physical exam patient is in no acute distress, nontoxic appearance. Differential diagnosis: Knee sprain, knee fracture, knee dislocation Need for hospitalization: Patient does not meet criteria for hospitalization. There are no social concerns with this patient. DX & DISP Disposition: Discharge Departure Impression: Primary Impression: Strain of right knee Condition: Stable Additional Instructions: Please follow up with your primary doctor in 1-2 days. Follow up with ortho. If anything worsens please return to ER. Rest avoid activities that cause pain. Ice- apply cold pack, bag of ice, or bag of frozen vegetables on your extremity every 1-2 hours for 15 minutes each time. Put a thin towel between the ice and your skin. Use the ice for at least 6 hours after your injury. Compression - you want to have your extremity under slight pressure by having it wrapped in an elastic bandage. This helps reduce swelling and supports the injured extremity. Elevation - keep your extremity raised above the level of your heart. To do this you can put some foot on some pillows or blankets while laying down on the table or chair where sitting down. FOLLOW-UP WITH PRIMARY CARE PROVIDER IN 1 TO 2 DAYS. TAKE MEDICATIONS DIRECTED HERE IN THE EMERGENCY ROOM. OKAY TO CONTINUE HOME MEDICATIONS UNLESS OTHERWISE DISCUSSED DURING YOUR VISIT IN THE EMERGENCY ROOM TODAY. RETURN TO YOUR NEAREST EMERGENCY ROOM IF SYMPTOMS WORSEN OR IF THERE IS NO IMPROVEMENT. CALL 911 IF YOU NEED IMMEDIATE ASSISTANCE. TAKE TYLENOL [id number] NEEDED AND IF NO CONTRAINDICATIONS ARE PRESENT. INCREASE ORAL HYDRATION. A WOUND CULTURE OR URINE CULTURE WAS ORDERED HERE IN THE EMERGENCY ROOM DEPARTMENT PLEASE FOLLOW-UP WITH PRIMARY CARE PROVIDER AND ADVISE THEM TO GET REPEAT PORTS FROM OUR FACILITY. IF YOU HAD ANY GINETTE WRAP/SPLINTS THAT WERE APPLIED HERE, PLEASE DO NOT REMOVE THEM UNTIL YOU SEE YOUR PRIMARY CARE OR SPECIALTY. Referrals: SUSAN HANSEN MD (PCP) SRINIVASA VALENCIA MD Time of Disposition: 20:58 I have reviewed the case, and I agree with, Diagnosis and Plan CARINA CHOPRA [facility] Oct 12, 2025 20:58
--- NOTE | 2025-10-12 21:13 | NUR ---
KNEE IMOBILIZER PLACED ON PATIENT ORDERED, CRUTCHES PROVIDED AND REINFORCED VIA TEACHBACK
== END 2025-10-12 21:38 | disposition home or self-care (01) ==
LOC: EDH 19:06
DX: S86.911A Strain of unspecified muscle(s) and tendon(s) at lower leg level, right leg, initial encounter (principal); E11.9 Type 2 diabetes mellitus without complications; Z88.0 Allergy status to penicillin; Z90.49 Acquired absence of other specified parts of digestive tract; W01.0XXA Fall on same level from slipping, tripping and stumbling without subsequent striking against object, initial encounter; Y93.89 Activity, other specified; Y92.89 Other specified places as the place of occurrence of the external cause; Y99.8 Other external cause status
CPT/HCPCS: 29505; 73562; 99283